=== PATIENT | male | born 1945 | race Two or more races ===

== ENCOUNTER 2016-11-17 21:43 | Emergency (ER) | payer OTHER ==
[~2016-11-17] VITALS: Ht 162.6 cm; Wt 66.4 kg
[2016-11-17 21:45] VITALS: BP 170/78
== END 2016-11-17 23:03 | disposition home or self-care (01) ==
LOC: ED 22:59
DX: S00.91XA Abrasion of unspecified part of head, initial encounter (principal); E11.9 Type 2 diabetes mellitus without complications; E78.5 Hyperlipidemia, unspecified; I10 Essential (primary) hypertension; W11.XXXA Fall on and from ladder, initial encounter; Y93.89 Activity, other specified; Y92.89 Other specified places as the place of occurrence of the external cause; Y99.8 Other external cause status
CPT/HCPCS: 70450; 72125; 99284